=== PATIENT | male | born 1940 | race Caucasian/White ===

== ENCOUNTER 2020-08-26 10:37 | Outpatient (CLI) | payer MEDICARE ==
[2020-08-26 12:27] LABS: Hemoglobin 13.1 g/dL (13.5-17.5); Mean Corpuscular HGB CONC 33.3 g/dL (32.0-36.0); Mean Corpuscular Hemoglobin 30.8 pg (27.0-33.0); Mean Corpuscular Volume 92.3 fl (81.2-95.1); Mean Platelet Volume 11.1 fl (7.4-10.4); Platelet Count 215 10x3/uL (150-450); RBC Distribution Width 12.5 % (11.5-14.5); Red Blood Cell (RBC) Count 4.26 10x6/uL (4.32-5.72); White Blood Cell (WBC) Count 7.2 10x3/uL (3.5-10.5)
[2020-08-26 12:36] LABS: Anion Gap 16 mmol/L (10-20); BUN (Urea Nitrogen) 43 mg/dL (8.4-25.7); Calc. Creatinine Clearance 0 mL/min (70-130); Calcium 9.8 mg/dL (7.8-10.44); Carbon Dioxide 24 mmol/L (23-31); Chloride 104 mmol/L (98-107); Glucose 370 mg/dL (83-110); Potassium 4.2 mmol/L (3.5-5.1); Sodium 140 mmol/L (136-145)
[2020-08-26 12:39] LABS: Prothrombin Time 10.7 sec (9.5-12.1)
== END 2020-08-26 10:38 | disposition home or self-care (01) ==
LOC: LABBT 10:37
PROVIDERS: ATTEND Surgery
DX: Z01.818 Encounter for other preprocedural examination (principal); M50.10 Cervical disc disorder with radiculopathy, unspecified cervical region; M48.02 Spinal stenosis, cervical region
CPT/HCPCS: 80048; 85027; 85610; 85730; 86850; 86900; 86901; 93005; 93010

== ENCOUNTER 2020-09-23 13:16 | Outpatient (CLI) | payer MEDICARE ==
[2020-09-23 14:41] LABS: Hemoglobin 12.2 g/dL (13.5-17.5); Mean Corpuscular HGB CONC 33.3 g/dL (32.0-36.0); Mean Corpuscular Hemoglobin 30.3 pg (27.0-33.0); Mean Platelet Volume 10.8 fl (7.4-10.4); Platelet Count 210 10x3/uL (150-450); RBC Distribution Width 12.7 % (11.5-14.5); Red Blood Cell (RBC) Count 4.02 10x6/uL (4.32-5.72); White Blood Cell (WBC) Count 7.2 10x3/uL (3.5-10.5)
[2020-09-23 15:16] LABS: PTT 23.1 sec (22.0-33.0); Prothrombin Time 10.9 sec (9.5-12.1)
[2020-09-23 15:17] LABS: ALT (SGPT) 17 U/L (8-55); AST (SGOT) 15 U/L (5-34); Alkaline Phosphatase 68 U/L (40-110); Anion Gap 14 mmol/L (10-20); BUN (Urea Nitrogen) 41 mg/dL (8.4-25.7); Bilirubin, Total 0.3 mg/dL (0.2-1.2); Calc. Creatinine Clearance 0 mL/min (70-130); Calcium 9.6 mg/dL (7.8-10.44); Carbon Dioxide 29 mmol/L (23-31); Chloride 100 mmol/L (98-107); Globulin 2.5 g/dL (2.4-3.5); Glucose 347 mg/dL (83-110); Potassium 4.1 mmol/L (3.5-5.1); Protein, Total 6.5 g/dL (5.8-8.1); Sodium 139 mmol/L (136-145)
[2020-09-23 16:12] LABS: Creatinine, Urine 66.07 mg/dL (63-166); Microalbumin/Creat Ratio 75.7 mg/g (Less than 30)
[2020-09-23 23:56] LABS: Hemoglobin A1c 10.1 % (4.0-6.0)
== END 2020-09-23 13:17 | disposition home or self-care (01) ==
LOC: LABBT 13:16
PROVIDERS: ATTEND Surgery
DX: Z01.818 Encounter for other preprocedural examination (principal); M50.11 Cervical disc disorder with radiculopathy, high cervical region; M48.02 Spinal stenosis, cervical region
CPT/HCPCS: 80053; 82043; 83036; 85027; 85610; 85730; 86850; 86900; 86901; 93005; 93010

== ENCOUNTER 2020-09-28 06:25 | Day surgery (SDC) | payer MEDICARE ==
[2020-09-28] MEDS ORDERED: Thrombin 5000 UNITS/5 ML VIAL ONE (06:32)
[2020-09-28] MEDS ORDERED: Fentanyl 250 MCG/5 ML VIAL ONE (06:52)
[2020-09-28] MEDS ORDERED: Albuterol Sulfate HFA (OR ONLY) ONE (07:45)
[2020-09-28] MEDS ORDERED: Rocuronium Bromide 10 MG/ML (10ML VIAL) ONE (07:45)
[2020-09-28] MEDS ORDERED: Dexamethasone 20 MG/5 ML VIAL ONE (07:45)
[2020-09-28] MEDS ORDERED: Metoclopramide HCl 10 MG/2 ML VIAL ONE (07:45)
[2020-09-28] MEDS ORDERED: Ondansetron PF 4 MG/2 ML Vial ONE (07:45)
[2020-09-28] MEDS ORDERED: Lidocaine 1% PF 5 ML VIAL ONE ×2 (07:45)
[2020-09-28] MEDS ORDERED: ePHEDrine Sulfate 50 MG/10 ML VIAL ONE (07:45)
[2020-09-28] MEDS ORDERED: PROPOFOL 200 MG/20 ML VIAL ONE (07:45)
[2020-09-28] MEDS ORDERED: Promethazine HCl 25 MG/ML VIAL IM PRN (09:36)
[2020-09-28] MEDS ORDERED: PACU-Morphine 4MG/ML VIAL SLOW IVP PRN (09:36)
[2020-09-28] MEDS ORDERED: HYDROmorphone 2 MG/ML VIAL SLOW IVP PRN (09:36)
[2020-09-28] MEDS ORDERED: Ondansetron HCl/PF 4 MG/2 ML Vial IVP PRN (09:36)
[2020-09-28] MEDS ORDERED: Promethazine HCl 25 MG/ML VIAL IVPB PRN (09:36)
[2020-09-28] MEDS ORDERED: Morphine Sulfate 2 MG/ML SYRINGE SLOW IVP PRN (09:36)
[2020-09-28] MEDS ORDERED: SUGAMMADEX SODIUM 200 MG/2 ML VIAL ONE (09:38)
[2020-09-28] MEDS ORDERED: Acetaminophen 325 MG TAB PO PRN (10:19)
[2020-09-28] MEDS ORDERED: Milk Of Magnesia 30 ML UDCUP PO PRN (10:19)
[2020-09-28] MEDS ORDERED: Acetaminophen/Codeine 30-300mg Tablet PO PRN (10:19)
[2020-09-28] MEDS ORDERED: diphenhydrAMINE 50 MG/ML VIAL IVP PRN (10:19)
[2020-09-28] MEDS ORDERED: Ondansetron PF 4 MG/2 ML Vial IVP PRN (10:19)
[2020-09-28] MEDS ORDERED: tiZANidine HCl 4 MG TAB PO PRN (10:19)
[2020-09-28] MEDS ORDERED: traMADol HCl 50 MG TAB PO PRN (10:19)
[2020-09-28] MEDS ORDERED: Morphine 2 MG/ML VIAL SLOW IVP PRN (10:19)
[2020-09-28] MEDS ORDERED: Bisacodyl 10 MG SUPP PR PRN (10:19)
[2020-09-28] MEDS ORDERED: HYDROmorphone 2 MG/ML VIAL ONE (10:47)
[2020-09-28] MEDS ORDERED: Morphine 2 MG/ML VIAL ONE (13:29)
[2020-09-28] MEDS: CEFAZOLIN 2 GM in Premix Bag 1 BAG IVPB SCH ×2 (16:50→22:45)
[2020-09-28] MEDS: Sodium Chloride 0.9% 1,000 ML IV SCH ×3 (17:56→22:45)
[2020-09-28 18:02] VITALS: BMI 30.5
[2020-09-28] MEDS: HYDROcodone/Acetaminophen 7.5/325 mg Tablet PO PRN (18:39)
[2020-09-28] MEDS: glipiZIDE 10 MG TAB PO SCH (20:02)
[2020-09-29] MEDS: CEFAZOLIN 2 GM in Premix Bag 1 BAG IVPB SCH (05:50)
[2020-09-29] MEDS: HYDROcodone/Acetaminophen 7.5/325 mg Tablet PO PRN (06:27)
[2020-09-29] MEDS ORDERED: Dextrose 5% in Water 1,000 ML IV PRN (06:45)
[2020-09-29] MEDS ORDERED: Dextrose 50% Abboject 50 ML SYRINGE IVP PRN (06:45)
[2020-09-29] MEDS: HumaLOG 300 UNITS/3 ML VIAL SC PRN ×2 (07:01→12:25)
[2020-09-29 07:34] VITALS: BP 135/73; TEMP 97.7
[2020-09-29] MEDS ORDERED: Vit A,C & E/Lutein/Minerals Tablet PO SCH (09:00)
[2020-09-29] MEDS ORDERED: Amlodipine 5 MG TAB PO SCH (09:00)
[2020-09-29] MEDS ORDERED: Cyanocobalamin (Vitamin B-12) 1,000 MCG TAB PO SCH (09:00)
[2020-09-29] MEDS ORDERED: Citrucel 500 MG TAB PO SCH (09:00)
[2020-09-29] MEDS ORDERED: Losartan/Hydrochlorothiazide 100 mg/25 mg Tablet PO SCH (09:00)
[2020-09-29] MEDS ORDERED: Lantus 1000 UNITS/10 ML VIAL SC SCH (09:00)
[2020-09-29] MEDS ORDERED: Furosemide 20 MG TAB PO SCH (09:00)
[2020-09-29] MEDS ORDERED: Ascorbic Acid 500 mg Chewable Tablet PO SCH (09:00)
[2020-09-29] MEDS ORDERED: Cholecalciferol 1,000 UNITS (25 MCG) TAB PO SCH (09:00)
[2020-09-29] MEDS ORDERED: Zinc Sulfate 220 MG CAP PO SCH (09:00)
[2020-09-29] MEDS: glipiZIDE 10 MG TAB PO SCH (09:56)
[2020-09-29] MEDS ORDERED: Atorvastatin Calcium 40 MG TAB PO SCH (21:00)
== END 2020-09-29 12:39 | disposition home or self-care (01) ==
LOC: SDC 06:25 → T4-A 10:16 → SDC 09-29 12:39
PROVIDERS: ATTEND Surgery
PROC: 0RG20A0 Fusion of 2 or more Cervical Vertebral Joints with Interbody Fusion Device, Anterior Approach, Anterior Column, Open Approach (ICD-10-PCS; principal; 2020-09-28)
PROC: 0RT30ZZ Resection of Cervical Vertebral Disc, Open Approach (ICD-10-PCS; 2020-09-28)
DX: M50.121 Cervical disc disorder at C4-C5 level with radiculopathy (principal); M48.02 Spinal stenosis, cervical region; M43.22 Fusion of spine, cervical region; Z79.02 Long term (current) use of antithrombotics/antiplatelets; Z79.4 Long term (current) use of insulin; Z79.82 Long term (current) use of aspirin; Z79.899 Other long term (current) drug therapy; Z88.2 Allergy status to sulfonamides; Z88.5 Allergy status to narcotic agent; Z88.8 Allergy status to other drugs, medicaments and biological substances
CPT/HCPCS: 20930; 20936; 22551; 22552; 22846; 22853 ×2; 76000; 82962; J2270; 36416; C1713; C1776; J0690; J1100; J1170; J1815; J2405; J2704; J2765; J3010